=== PATIENT | female | born 1995 | race Caucasian/White ===

== ENCOUNTER 2017-05-30 21:56 | Emergency (ER) | payer MEDICAID, OTHER ==
[2017-05-30 22:11] VITALS: BP 123/64; BMI 22.4
[2017-05-30] MEDS ORDERED: MOTRIN TAB 800 MG PO ONE ×2 (22:47)
[2017-05-30 22:54] LABS: BILIRUBIN,URINE NEGATIVE (NEGATIVE); BLOOD/HEMOGLOBIN,URINE 1+ (NEGATIVE); GLUCOSE, URINE NEGATIVE (NEGATIVE); KETONES,URINE NEGATIVE (NEGATIVE); LEUKOCYTE ESTERASE ,URINE 1+ (NEGATIVE); NITRITES,URINE POSITIVE (NEGATIVE); PH,URINE 6.5 (5.0 - 8.0); PROTEIN,URINE NEGATIVE (NEGATIVE); UROBILINOGEN,URINE NORMAL (NORMAL)
[2017-05-30 23:01] LABS: APPEARANCE,URINE SLIGHTLY HAZY (CLEAR); BACTERIA,URINE 3+ /HPF (NEGATIVE); COLOR,URINE YELLOW (YELLOW); SQUAMOUS EPITHELIAL CELL,UR FEW /HPF (NEGATIVE)
--- NOTE | 2017-05-30 23:28 | DR.GENAD ---
HPI - PCP Primary Care Physician: NFD - Complaint/Symptoms Chief Complaint:: PT STATES" I STARTED HURTING REALLY BAD IN MY LOWER BACK LEGS AND REALLY ALL OVER MY THROAT HURTS REALLY BAD AND I HURT WHEN I PEE" - Nurses notes reviewed Nurses Notes Review: Yes - Source History Provided: Patient - Mode of Arrival Mode of Arrival: Ambulatory - Timing Onset of Chief Complaint: 05/30/17 PMH - PMH Past Medical History: Yes Past Medical History: Anxiety Past Surgical History: Yes Surgical History: - Family History History of Family Medical Conditions: Yes Family Medical History: Diabetes Mellitus, Cancer, [place], Hypertension - Social History Alcohol Use: None Do you use any recreational Drugs:: No Lives With: Family Lives Where: Home - infectious screening In the last 2 months have you had wt loss of >10#?: NO Have you had fever, night sweats or hemotysis?: No Have you traveled outside the country in the last 6 months?: No Isolation: Standard PE - Vital Signs Vitals: Temperature 101.9 F Pulse Rate 91 Respiratory Rate 18 Blood Pressure [Right Arm] 128/78 Blood Pressure [Left Arm] 117/68 Blood Pressure 123/64 O2 Sat by Pulse Oximetry 99 ROR - Labs Reviewed Laboratory: Specimen Type Clean catch urine 05/30/17 22:42 Urine Color Yellow (YELLOW) 05/30/17 22:42 Urine Appearance Slightly hazy (CLEAR) 05/30/17 22:42 Urine pH 6.5 (5.0 - 8.0) 05/30/17 22:42 Ur Specific Hope 1.015 (1.000-1.030) 05/30/17 22:42 Urine Protein Negative (NEGATIVE) 05/30/17 22:42 Urine Glucose (UA) Negative (NEGATIVE) 05/30/17 22:42 Urine Ketones Negative (NEGATIVE) 05/30/17 22:42 Urine Occult Blood 1+ (NEGATIVE) 05/30/17 22:42 Urine Nitrite Positive (NEGATIVE) 05/30/17 22:42 Urine Bilirubin Negative (NEGATIVE) 05/30/17 22:42 Urine Urobilinogen Normal (NORMAL) 05/30/17 22:42 Ur Leukocyte Esterase 1+ (NEGATIVE) 05/30/17 22:42 Urine RBC 5-7 /HPF (NEGATIVE) 05/30/17 22:42 Urine WBC 7-8 /HPF (NEGATIVE) 05/30/17 22:42 Ur Squamous Epith Cells Few /HPF (NEGATIVE) 05/30/17 22:42 Urine Bacteria 3+ /HPF (NEGATIVE) 05/30/17 22:42 Ur Culture Indicated? Yes/culture set up 05/30/17 22:42 Influenza Type A (PCR) Negative (NEGATIVE) 05/30/17 22:42 Influenza Type B (PCR) Negative (NEGATIVE) 05/30/17 22:42 Streptococcus Screen Negative (NEGATIVE) 05/30/17 22:42 - Discharge Plan Condition: Stable Prescriptions: Ibuprofen [MOTRIN TAB 800 MG *] 800 mg PO Q8H PRN #20 tab PRN Reason: Pain/Inflammation Sulfamethoxazole-Trimethoprim [BACTRIM DS TAB 800/160 MG *] 1 tab PO BID #20 tab - Follow ups/Referrals Follow ups/Referrals: NFD,None [Primary Care Provider] - 3 days - Instructions Instructions: Urinary Tract Infection, Adult, [id number] Additional Instructions: RETURN TO ED IF WORSE.
== END 2017-05-31 00:01 | disposition home or self-care (01) ==
LOC: ER 22:34
DX: N39.0 Urinary tract infection, site not specified (principal); B96.29 Other Escherichia coli [E. coli] as the cause of diseases classified elsewhere
CPT/HCPCS: 81001; 87070; 87086; 87088; 87186; 87502; 87880; 99282; 99283